=== PATIENT | male | born 1970 | race African-American/Black ===

== ENCOUNTER 2019-06-20 10:23 | Emergency (ER) | payer OTHER ==
[2019-06-20] MEDS ORDERED: AMOXICILLIN875 MG PO (11:24)
[2019-06-20 11:30] VITALS: BP 118/87
== END 2019-06-20 11:28 | disposition home or self-care (01) ==
LOC: ED 10:23
DX: J02.0 Streptococcal pharyngitis (principal)

== ENCOUNTER → 2021-02-28 | Outpatient (CLI) | payer OTHER ==
[~2021-02-28] MED LIST: AMOXICILLIN875 MG PO
[2021-02-28 10:31] LABS: POTASSIUM 4.4 mmol/L (3.5-5.1)
[2021-02-28 10:33] LABS: CALCIUM 10.1 mg/dL (8.3-10.5)
[2021-02-28 10:34] LABS: TOTAL PROTEIN 7.1 g/dL (6.4-8.3)
== END ==
LOC: LAB 09:50
PROVIDERS: Family Medicine
DX: Z00.00 Encounter for general adult medical examination without abnormal findings (principal); Z13.6 Encounter for screening for cardiovascular disorders; Z12.5 Encounter for screening for malignant neoplasm of prostate

== ENCOUNTER → 2021-10-27 | Outpatient (CLI) | payer OTHER ==
[2021-10-27 11:49] LABS: URINE APPEARANCE CLEAR; URINE COLOR YELLOW; URINE PROTEIN(semi-quant) NEGATIVE (NEGATIVE)
[2021-10-27 11:50] LABS: URINE BILIRUBIN NEGATIVE (NEGATIVE); URINE BLOOD NEGATIVE (NEGATIVE); URINE GLUCOSE NEGATIVE (NEGATIVE); URINE KETONE NEGATIVE (NEGATIVE); URINE LEUKOCYTE ESTERASE NEGATIVE (NEGATIVE); URINE MUCUS PRESENT (NOT PRESENT); URINE NITRATE NEGATIVE (NEGATIVE); URINE UROBILINOGEN NORMAL (NORMAL); URINE WBC 0-1 /hpf (0-3)
== END ==
LOC: LAB 10:25
PROVIDERS: Family Medicine
DX: F90.0 Attention-deficit hyperactivity disorder, predominantly inattentive type (principal); R39.15 Urgency of urination